=== PATIENT | female | born 1960 | race Caucasian/White ===

== ENCOUNTER 2020-02-25 13:45 | Outpatient (CLI) | payer BC, SELFPAY ==
--- NOTE | 2020-02-25 13:53 | XR_ITS ---
WS: [id number] SCREENING DEXA SCAN CHARGED.fm CLINICAL INFORMATION: POST MENOPAUSAL COMPARISON: None. FINDINGS: The L1-L4 bone mineral density measures 1.122 g/cm2. This corresponds to a T score score of -0.5 and Z score of 0.6. Left femoral neck bone mineral density measures 0.820 g/cm2. This corresponds to a T score of -1.5 an d Z score of -0.7. Right femoral neck bone mineral density measures 0.878 g/cm2. This corresponds to a T score -1.0of an d Z score of -0.2. Mean femoral neck bone mineral density measures 0.849 g/cm2. This corresponds to a T score of -1.3 an d Z score of -0.4. XR/XR DEXA axial skeleton* 92593 IMPRESSION: Osteopenia Patient's FRAX calculated 10 year probability for major osteoporotic fracture i s 28.4 % and osteoporotic hip fracture is 1.7%.
== END 2020-02-25 13:46 | disposition home or self-care (01) ==
LOC: RADWPI 13:53
PROVIDERS: Visit Provider Nurse Practitioner
DX: Z78.0 Asymptomatic menopausal state (principal); M85.89 Other specified disorders of bone density and structure, multiple sites; Z13.820 Encounter for screening for osteoporosis
CPT/HCPCS: 77080

== ENCOUNTER 2022-06-27 09:32 | Day surgery (SDC) | payer OTHER, SELFPAY ==
[2022-06-25 13:26] VITALS: BMI 30.8
[2022-06-27 09:58] VITALS: BP 157/91; PULSE 78; RESP 18; TEMP 36.1; O2SAT 97
[2022-06-27] MEDS: sodium chloride 0.9% 1,000 ML 30 ML IV (10:03)
--- NOTE | 2022-06-27 10:10 | ANES.PREANE2 ---
Pre-Anesthetic Assessment Height/Weight: Height 1.52 m Weight 71.668 kg Temp Pulse Resp BP Pulse Ox O2 Del Method 97 F L 78 18 157/91 97 06/27/22 09:58 06/27/22 09:58 06/27/22 09:58 06/27/22 09:58 06/27/22 09:58 06/27/22 09:58 Preop Diagnosis: Screening colonoscopy/Family history of colon cancer Operation Date: 06/27/22 11:00 Proposed Procedures p Colonoscopy 75230,Z12.11(Not Applicable) - Chucho Loving MD Familial anesthetic complications: None Was Beta Lakeisha taken within 24 hours: N/A Was Clonidine taken within 24 hours: N/A Last intake: Intake Last Liquid Date 06/26/22 Last Liquid Time 00:00 Last Solid Date 06/25/22 Last Solid Time 20:00 Social No alcohol and No tobacco Exam alert, oriented x 3, clear to auscultation bilaterally and regular rate & rhythm Airway Mallampati: Class II Dentition: other (missing) Anesthetic Plan ASA status: 1 Anesthesia: MAC Risk of > 500 ml blood loss (7ml/kg in children): No Medications/Allergies Home Medications Medication Instructions Recorded Confirmed Last Taken Type aspirin 81 mg tablet,delayed 81 mg PO DAILY 05/15/22 06/27/22 06/17/22 History release (Adult Aspirin Regimen) cholecalciferol (vitamin D3) 50 50 mcg PO DAILY 05/15/22 06/27/22 06/25/22 History mcg (2,000 unit) capsule loratadine 10 mg tablet (Claritin) 10 mg PO DAILY 05/15/22 06/27/22 06/25/22 History Allergies Allergy/AdvReac Type Severity Reaction Status Date / Time No Known Allergies Allergy Verified 05/17/22 10:33 Current Medications Generic Name Dose Route Start Last Admin Trade Name Freq PRN Reason Stop Dose Admin Sodium Chloride 1,000 mls @ 30 mls/hr 06/27/22 09:45 06/27/22 10:03 Sodium Chloride 0.9% IV 30 mls/hr .Q24H MANUEL Administration PFSH Anesthesia Family History Other Cancer Social History Smoking and tobacco status: former smoker Data Anesthesia Cardiac Studies: No Data to Display
--- NOTE | 2022-06-27 11:12 | P.HP_ITS ---
Same Day Surgery H&P Indication for Procedure/HPI DATE OF PROCEDURE: June 27, 2022 CHIEF COMPLAINT/INDICATIONFOR SURGICAL PROCEDURE: Screening colonoscopy PREOP DIAGNOSIS: Screening colonoscopy/Family history of colon cancer PLANNED PROCEDURE: Operation Date: 06/27/22 11:00 Proposed Procedures p Colonoscopy 71301,Z12.11(Not Applicable) - Chucho Loving MD 05/15/2022 This is a pleasant 61 years old female patient well-known to me from previous clinical encounters before 5-year were added at that time screening colonoscopy and was showing only diverticulosis.? Patient does give profound history of colon cancer in her family her mother at age of 80, her brother age of 68, sister at age of 53 and another sister at age 50.? All had developed colorectal carcinoma.? Patient comes today for colonoscopy.? He denies bleeding per rectum. 06/27/2022 Patient comes today for screening colonoscopy Medications/Allergies* Home Medications Medication Instructions Recorded Confirmed Type aspirin 81 mg tablet,delayed 81 mg PO DAILY 05/15/22 06/27/22 History release (Adult Aspirin Regimen) cholecalciferol (vitamin D3) 50 50 mcg PO DAILY 05/15/22 06/27/22 History mcg (2,000 unit) capsule loratadine 10 mg tablet (Claritin) 10 mg PO DAILY 05/15/22 06/27/22 History Allergies/Adverse Reactions Allergy/AdvReac Type Severity Reaction Status Date / Time No Known Allergies Allergy Verified 05/17/22 10:33 Current Medications: Generic Name Dose Route Start Last Admin Trade Name Freq PRN Reason Stop Dose Admin Sodium Chloride 1,000 mls @ 30 mls/hr 06/27/22 09:45 06/27/22 10:03 Sodium Chloride 0.9% IV 30 mls/hr .Q24H MANUEL Administration Pertinent History/Comorbid Conditions* Family History (Updated 05/15/22 @ 10:23 by Malika Boyer MA) Cancer Social History Smoking and tobacco status: former smoker Pertinent Exam Findings alert, oriented x 3, regular rate & rhythm and procedure specific exam findings (Abdominal exam nontender nondistended soft) Recommendations Surgery/Procedure today (Colonoscopy with possible biopsy) Coding Level of Care Code Acute [employer] for In[employer] Atwood
[2022-06-27 11:53] VITALS: BP 111/67; PULSE 75; RESP 12; TEMP 36.1; O2SAT 96
[2022-06-27 12:03] VITALS: BP 110/64; PULSE 70; RESP 16; O2SAT 94
--- NOTE | 2022-06-27 14:04 | ANE.PACU2 ---
Inpatient post-anesthesia follow up: Airway intact: Yes Vital signs: Temperature 97 F Pulse Rate 70 Respiratory Rate 16 Blood Pressure 110/64 Pulse Oximetry 94 Oxygen Delivery Me thod Room Air Oxygen Flow Rate Fraction of Inspir ed Oxygen Hydration adequate: Yes Nausea and vomiting: No Pain level: 1 Mental status: Baseline
== END 2022-06-27 12:31 | disposition home or self-care (01) ==
PROVIDERS: PCP Family Medicine; Visit Provider Surgery
PROC: 0DJD8ZZ Inspection of Lower Intestinal Tract, Via Natural or Artificial Opening Endoscopic (ICD-10-PCS; CPT 45378; principal; 2022-06-27 11:00)
DX: Z12.11 Encounter for screening for malignant neoplasm of colon (principal); Z80.0 Family history of malignant neoplasm of digestive organs; Z79.82 Long term (current) use of aspirin; K57.30 Diverticulosis of large intestine without perforation or abscess without bleeding; Z87.891 Personal history of nicotine dependence
CPT/HCPCS: 45378; J2704; J7030

== ENCOUNTER 2025-01-07 12:44 | Outpatient (CLI) | payer BC, SELFPAY ==
--- NOTE | 2025-01-07 12:47 | MR_ITS ---
WS: [id number] MRI THORACIC SPINE noncontrast HISTORY: THORACIC BACK PAIN COMPARISON: Radiograph 02/27/2023 TECHNIQUE: Multiplanar sequences are performed in sagittal and axial planes. Normal thoracic alignment. Disc spaces and vertebral body heights are well- maintained. No marrow edema or fracture. Signal within the cord is normal. Conus tapers normally ends at the mid L1 level. T1-2: Normal. T2-3: LEFT nerve root sleeve diverticulum. T3-4: Bilateral nerve root sleeve diverticula, LEFT greater than RIGHT. T4-5: RIGHT nerve root sleeve diverticulum. T5-6: Normal. T6-7: Normal. T7-8: Large bilateral nerve root sleeve diverticula. T8-9: Normal. T9-10: LEFT nerve root sleeve diverticulum. T10-11: Large bilateral nerve root sleeve diverticula. T11-12: Normal. MR/MR thoracic spin wo con* [id number] IMPRESSION: 1. No disc protrusions or thoracic stenosis. No cord encroachment. 2. Numerous, incidental nerve root sleeve diverticula.
== END 2025-01-07 12:45 | disposition home or self-care (01) ==
PROVIDERS: PCP Family Medicine; Visit Provider Family Medicine
DX: M54.6 Pain in thoracic spine (principal); G54.8 Other nerve root and plexus disorders
CPT/HCPCS: 72146